=== PATIENT | male | born 2005 | race Caucasian/White ===

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

== ENCOUNTER 2023-04-02 10:19 | Emergency (ER) | payer SELFPAY ==
--- NOTE | 2023-04-02 11:05 | EXP.UTC ---
Discharge Plan Disposition Patient Disposition: Home, Self-Care Condition: Good Prescriptions Prescriptions: New polymyxin B sulf-trimethoprim 10,000 unit- 1 mg/mL drops 1 drp ophthalmic (eye) Q3H 7 Days Qty: 10 0RF Rx Instructions: while awake; do not exceed 6 doses in 24 hours Referrals Follow up/Referrals: Provider,Referral, MD [Primary Care Provider] - See instructions Activity Restrictions/Add. Instructions Additional Instructions/Restrictions: Use the eye drops as directed. Strict hand washing in the house hold, because conjunctivitis is very contagious. Follow up with your regular doctor. GO TO THE ER FOR ANY WORSENING SYMPTOMS OR CONCERNS Clinical Impressions Clinical Impression: Acute conjunctivitis, right eye Stand Alone Forms Stand Alone Forms: Work/School Release Instructions Patient Instructions: How to Instill Eye Drops, DI for Conjunctivitis Discharge ED Provider: Joey Ford [facility] [place] H[place] General Stated complaint: crusty red eyes Time Seen by Provider: 04/02/23 11:04 History of Present Illness Provider Complaint: He states that since yesterday he has had right eye redness and irritation. When he woke up this morning his right eye was matted together with greenish drainage. He denies any injury or foreign body. Related Data Previous Rx's Medication Instructions Recorded polymyxin B sulfate 10,000 1 drp ophthalmic (eye) Q3H 7 days 04/02/23 unit-trimethoprim 1 mg/mL eye drops #10 mL Allergies Allergy/AdvReac Type Severity Reaction Status Date / Time No Known Allergies Allergy Verified 04/02/23 11:24 [facility] Disclaimer: The information contained in this section may have been updated after the patient was seen, as this information can be updated by other users. Social History Smoking Status: Never smoker alcohol intake: never current occupational status: student Travel in the last 8 weeks: None ROS Obtained: Yes All systems reviewed & no additional complaints except as documented Constitutional Constitutional: Denies chills and Denies fever(s) Eyes Eyes: Reports as per HPI, Denies blurry vision, Denies change in vision, Denies diplopia, Reports eye discharge and Reports irritation ENT Ears, Nose, Mouth, and Throat: Denies dizziness, Denies otalgia and Denies sore throat Cardiovascular Cardiovascular: Denies chest pain Respiratory Respiratory: Denies shortness of breath, Denies chest congestion, Denies cough, Denies stridor and Denies wheezing Gastrointestinal Gastrointestingal: Denies nausea or vomiting Musculoskeletal Musculoskeletal: Reports system reviewed and no additional complaints, except as documented and Denies arthralgias Integumentary/Breasts Skin/Breast: Denies rash Neurologic Neurologic: Denies dizziness and Denies paresthesias Allergic/Immunologic Allergic/Immunologic: Denies wheezing Physical Exam General General appearance: alert and in no apparent distress Head Head exam: atraumatic, normocephalic and normal inspection Eye Eye exam: Present PERRL and EOMI Expanded Eye Exam Eyelids: left: normal inspection and right: erythema Pupils: Left: size (2), Right: size (2) and Bilateral: regular, round and reactive Sclera/Conjunctival: left: normal inspection and right: injection and exudate ENT ENT exam: Present normal exam, normal oropharynx, mucous membranes moist, TM's normal bilaterally and normal external ear exam Neck Neck exam: Present normal inspection, full ROM and trachea midline; Absent meningismus or lymphadenopathy Chest Chest inspection: Present normal inspection and symmetric chest wall rise; Absent tenderness Respiratory Respiratory exam: Present normal lung sounds bilaterally; Absent respiratory distress Cardiovascular Cardiovascular exam: Present regular rate and normal rhythm; Absent JVD Abdominal Exam Abdominal exam: Present soft and normal bowel sounds; Absent
[2023-04-02 11:10] VITALS: BP 136/75; PULSE 68; RESP 18; TEMP 36.9; O2SAT 99; BMI 21.6
[2023-04-02 11:36] VITALS: BP 136/75; PULSE 68; RESP 18; TEMP 36.9; O2SAT 99
== END 2023-04-02 11:36 | disposition home or self-care (01) ==
PROVIDERS: Emergency Provider Nurse Practitioner Family
DX: H10.31 Unspecified acute conjunctivitis, right eye (principal)
CPT/HCPCS: 99212; 99213; G0463

== ENCOUNTER 2024-06-16 18:07 | Emergency (ER) | payer MEDICAID, SELFPAY ==
[2024-06-16 18:25] VITALS: BP 143/86; PULSE 104; RESP 16; TEMP 37.4; O2SAT 99; BMI 21.7
--- NOTE | 2024-06-16 20:19 | PC.NURSE ---
Report received from Nikki BALTAZAR Pt resting quietly in recliner Skin pink warm and dry Lower lip swollen with small open area. Resp full and easy Speech clear and appropriate
--- NOTE | 2024-06-16 21:00 | ED_ITS ---
Discharge Plan Disposition Patient Disposition: Home, Self-Care Condition: Good Prescriptions Prescriptions: New amoxicillin-pot clavulanate 875-125 mg tablet 1 tab PO BID Qty: 20 0RF acyclovir 400 mg tablet 400 mg PO Q6H 10 Days Qty: 40 0RF No Action prednisone 20 mg tablet 20 mg PO BID Qty: 10 0RF sulfamethoxazole-trimethoprim 800-160 mg tablet 1 tab PO BID Qty: 14 0RF cephalexin 500 mg tablet 500 mg PO QID 7 Days Qty: 28 0RF Referrals Follow up/Referrals: Provider,Referral, MD [Primary Care Provider] - See instructions Activity Restrictions/Add. Instructions Additional Instructions/Restrictions: You were evaluated in the emergency department today. At this time, I am very concerned for all of the inflammation and infection of your lip. I recommend rapid evaluation by an oral surgeon. I offered to transfer tonight for further evaluation, however since you are electing to go home, please make sure that you return right away for new or worsening symptoms. 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 Stop taking the other medications provided to you by primary care. Return to the emergency department for new or worsening symptoms. Take Tylenol and ibuprofen every 4-6 hours as needed for pain. Clinical Impressions Clinical Impression: Infection of lip Stand Alone Forms Stand Alone Forms: Work/School Release Instructions Patient Instructions: DI for Skin Abscess Print Language Print Language: Upper Sorbian Discharge ED Provider: Arabella Gallegos General Adult HPI General Chief complaint: Skin/Abscess/Foreign Body Stated complaint: squeezed pimple on lower lip,now swollen Time Seen by Provider: 06/16/24 20:28 Mode of Arrival: Ambulatory Source of Information: Patient Limitations: No Limitations Description of Symptoms (Recalled from ER Triage Doc. by RN): Pt presents for further evaluation of infection to his bottom lip. Pt was seen at [facility] on thursday and was prescribed antibiotics/steroids. Pt states the infection started off as a pimple but now the swelling is worse. History of Present Illness HPI narrative: This patient is a 19-year-old male who reports history of cold sores presenting to the emergency department for evaluation with concern for lower lip infection. Patient reports that has been going on for several days. He states that it started out as a white pimple that they popped, but now his whole lip is become red, swollen, inflamed. He notes a history of cold sores but this did not start out as a cold sore he says. He notes that he is been having fevers, but he states that his young children who have also been sick. Related Data Previous Rx's ?Medication ?Instructions ?Recorded cephalexin 500 mg tablet 500 mg PO QID 7 days #28 tabs 06/14/24 prednisone 20 mg tablet 20 mg PO BID #10 tabs 06/14/24 sulfamethoxazole 800 1 tab PO BID #14 tabs 06/14/24 mg-trimethoprim 160 mg tablet acyclovir 400 mg tablet 400 mg PO Q6H 10 days #40 tabs 06/16/24 amoxicillin 875 mg-potassium 1 tab PO BID #20 tabs 06/16/24 clavulanate 125 mg tablet Allergies Allergy/AdvReac Type Severity Reaction Status Date / Time No Known Allergies Allergy Verified 06/14/24 16:06 [facility] Disclaimer: The information contained in this section may have been updated after the patient was seen, as this information can be updated by other users. Social History Smoking Status: Never smoker alcohol intake: never current occupational status: student Travel in the last 8 weeks: None Have you lived/traveled outside [place] in past 30 days?: No Contact w/someone who lives/traveled outside US past 30 days?: No Exposure to someone with infectious disease in past 14 days?: No Do you have a fever (greater than 100.4 F or 38 C)?: No Have you tested positive for COVID-19: No Exposed to someone with COVID-19 in past 14 days?: No Do you have a sore throat?: No Do you have a cough?: No Do you have any weakness?: No Do you have any diarrhea?: No Are you experiencing any unusual bleeding?: No Do you have any muscle aches/pain?: No Do you have any abdominal pain?: No Are you experiencing loss of taste or smell?: No Other Medical History Have you received the Pneumonia Vaccine: No ROS Obtained: Yes All systems reviewed & no additional complaints except as documented Physical Exam General General appearance: alert and in no apparent distress Head Head exam: atraumatic and normocephalic Eye Eye exam: Present normal appearance, PERRL and EOMI ENT ENT exam: Present mucous membranes moist and normal external ear exam Expanded ENT Exam Nose/Mouth Image: 2 1. Significant lower lip swelling and induration, area of necrosis. 2. White area of purulent Comment: Swelling is localized to the lower lip without spread to the face or oropharynx Neck Neck exam: Present normal inspection, full ROM and trachea midline; Absent tenderness Chest Chest inspection: Present normal inspection and symmetric chest wall rise; Absent tenderness Respiratory Respiratory exam: Present normal lung sounds bilaterally; Absent respiratory distress, wheezes, stridor or accessory muscle use Cardiovascular Cardiovascular exam: Present regular rate and normal rhythm Abdominal Exam Abdominal exam: Present soft; Absent distention, tenderness or guarding Extremities Exam Extremities exam: Present normal inspection, full ROM and normal capillary refill; Absent tenderness or edema Back Exam Back exam: Present normal inspection and full ROM; Absent tenderness Neurological Exam Neurological exam: Present alert, oriented X3, CN II-XII intact and normal gait; Absent motor sensory deficit Psychiatric Psychiatric exam: Present normal affect and normal mood Skin Skin exam: Present warm and dry Medical Decision Making Medical Records Medical records reviewed: Yes I reviewed the patient's medical records. Screening: Per USPSTF and CDC recommendations, given the prevalence of disease in our region, it is our hospital?s policy to screen for HIV and viral Hepatitis for all patients aged 18 and over and those with ongoing risk factors. Toby Inquiry Pt receiving controlled substance: No Vital Signs: 06/16/24 18:25 06/16/24 22:57 Temperature 99.3 F 99.0 F Temperature Source Oral Oral Pulse Rate 98 H Pulse Rate [Right] 104 H Respiratory Rate 16 20 Blood Pressure 140/70 Blood Pressure [Right Arm] 143/86 H Blood Pressure Mean [Right Arm] 105 Blood Pressure Source Automatic Cuff Blood Pressure Source [Right Arm] Automatic Cuff Blood Pressure Position Sitting Blood Pressure Position [Right Arm] Sitting 02 Sat by Pulse Oximetry 99 Oxygen Delivery Method Room Air Room Air Lab Data Lab results reviewed: Yes I reviewed the patient's lab results. Orders (Tests/Meds): ED MEDICATIONS Discontinued Medications Generic Name Dose Route Start Last Admin Trade Name Freq PRN Reason Stop Dose Admin Acetaminophen 1,000 mg 06/16/24 21:57 06/16/24 22:09 Acetaminophen 500mg Tab PO 06/16/24 21:58 1,000 mg ONCE ONE Administration Acyclovir 800 mg 06/16/24 21:52 06/16/24 22:09 Acyclovir 400mg Tab PO 06/16/24 21:53 800 mg ONCE ONE Administration Amoxicillin/Clavulanate Potassium 1 each 06/16/24 21:52 06/16/24 22:08 Amoxicillin/Clavulanate Potassium 875/125mg Tablet PO 06/16/24 21:53 1 each ONCE ONE Administration Benzocaine/Butamben/Tetracaine HCl 1 gm 06/16/24 21:25 06/16/24 21:32 Tetracaine/Benzocaine/Butamben 56 Gm [place] TP 06/16/24 21:26 1 gm ONCE ONE Administration Ibuprofen 800 mg 06/16/24 21:57 06/16/24 22:08 Ibuprofen 400 Mg Tablet PO 06/16/24 21:58 800 mg ONCE ONE Administration Lidocaine HCl 15 ml 06/16/24 21:25 06/16/24 21:32 Lidocaine 2% Viscous Tiana 15ml Udc PO 06/16/24 21:26 15 ml ONCE ONE Administration Ondansetron HCl 4 mg 06/16/24 21:57 06/16/24 22:09 Ondansetron 4mg Odt SL 06/16/24 21:58 4 mg ONCE ONE Administration ORDERS Category Date Time Status POCUS Point of Care (ER Only) Stat Exams 06/16/24 21:24 Completed HSV 1/2 PCR, (BLOOD/SWAB) Routine Lab 06/16/24 21:50 Ordered Wound Culture and Gram Stain Stat Micro 06/16/24 22:05 Results Medical Decision Narrative: In summary, this patient is a 19-year-old male presenting to the Emergency Department for evaluation of lower lip pain/swelling. Differential diagnoses considered include but are not limited to HSV infection, cellulitis, abscess, phlegmon. Ruling out the most morbid conditions drove assessment. On exam, the patient is nontoxic-appearing with reassuring vital signs on cardiac telemetry. He has localized swelling to his lower lip with area of necrosis, white areas concerning for purulence. He has significant tenderness and induration of his lower lip without obvious palpable area of fluctuance. I recommended to patient that I would recommend oral surgery evaluation/face evaluation for definitive management in case he does have an abscess there. Patient does not have insurance, an oral surgeon, a dentist, or PCP. I did call and discussed the case with who recommended the same thing, but patient would like to try drainage here because he does not have the means to go elsewhere. I explained to him that I am likely to not be able to get anything out, and drainage attempt could worsen cosmetic outcomes. He also could develop worsening infection if this is not dealt with by specialist sooner rather than later. He expressed understanding and agreement would like to proceed with attempted incision and drainage here. Procedure note: After informed consent was obtained and risk versus benefit was explained, patient elected to proceed with incision and drainage. Area was prepped with Betadine. Area was anesthetized with topical lidocaine. I incised the largest area of swelling and induration with a tiny small stab incision with an 11 blade scalpel and got a very small amount of purulence. I then discussed with the patient again and he still does not want to proceed with any sort of transfer or further evaluation. He would like to try going home with medications and see if he gets better now that it has been opened up. I prescribed him Augmentin and acyclovir just in case he has some herpetic component. He was given instructions for supportive management, close outpatient follow-up, and very strict return precautions. He was discharged via patient directed discharge after all questions were answered. Procedures Limited Ultrasound Findings:: Limited soft tissue ultrasound Indication: Soft tissue swelling and pain Identified structures: Location: Lower lip Findings: Cellulitis with fluid collection with mixed heterogeneity concerning for abscess versus developing phlegmon Impression: Abscess and cellulitis Images were saved to permanent archive The study was technically adequate Soft Tissue CPT Codes: CPT Neck: 77270-93 CPT Upper extremity: 43092-29 CPT Axilla: 33053-05 CPT Chest wall: 17225-84 CPT Breast: 64781-48-LG/LT (complete), 52646-86-JQ/LT (limited), CPT Upper Back: 68063-38 CPT Lower Back: 44314-92 CPT Abdominal Wall: 73277-58 CPT Pelvic Wall: 12168-08 CPT Lower Extremity: 04155-52 CPT Other Soft Tissue: 01899-93 This study was performed by me, and I personally interpreted all images/videos. Based on my clinical judgement, these images were adequate and did not necessitate further imaging. Critical Care Critical Care Time Critical Care Time: No
[2024-06-16] MEDS: TETRACAINE/BENZOCAINE/BUTAMBEN 56 GM SPRAY TP (21:32)
[2024-06-16] MEDS: LIDOCAINE 2% VISCOUS SOL 15ML UDC 15 ML PO (21:32)
[2024-06-16] MEDS: IBUPROFEN 400 MG TABLET 800 MG PO (22:08)
[2024-06-16] MEDS: AMOXICILLIN/CLAVULANATE POTASSIUM 875/125MG TABLET 1 EACH PO (22:08)
[2024-06-16] MEDS: ACETAMINOPHEN 500MG TAB 1000 MG PO (22:09)
[2024-06-16] MEDS: ACYCLOVIR 400MG TAB 800 MG PO (22:09)
[2024-06-16] MEDS: ONDANSETRON 4MG ODT 4 MG SL (22:09)
--- NOTE | 2024-06-16 22:24 | PC.NURSE ---
[facility] called for face consult.
[2024-06-16 22:57] VITALS: BP 140/70; PULSE 98; RESP 20; TEMP 37.2; O2SAT 97
--- NOTE | 2024-06-19 10:13 | PC.NURSE ---
WOUND CULTURE DISCUSSED WITH DR ELAM, ATTEMPTED TO REACH PT. NO ANSWER AND UNABLE TO LEAVE MESSAGE. CALLED MOTHER, PERSON TO NOTIFY. STATES PT'S LIP IS BETTER AND WILL HAVE PT RETURN MY CALL.
--- NOTE | 2024-06-19 10:18 | PC.NURSE ---
SPOKE WITH PT, REPORTS SIGNIFICANT IMPROVEMENT OF LIP REDNESS AND SWELLING. PT INSTRUCTED TO FOLLOW-UP WITH PCP. INSTRUCTED TO DC AUGMENTIN AND FINISH BACTRIM RX THAT WAS GIVEN BY ABEL FITCH ON 06/14/2024. CALL BACK WITH ANY OTHER CONCERNS OR RETURN TO ED WITH WORSENING OF SYMPTOMS
--- NOTE | 2024-06-20 08:44 | PC.NURSE ---
lab called for wound culture results. MRSA +. will speak with MD about ABX treatment and contact pt if needed.
--- NOTE | 2024-06-20 12:26 | PC.NURSE ---
discussed wound culture with , no new orders
[2024-06-21 09:12] LABS: HSV-1 DNA Negative (Negative); HSV-2 DNA Negative (Negative)
== END 2024-06-16 22:59 | disposition home or self-care (01) ==
PROVIDERS: Emergency Provider Emergency Medicine
DX: K13.0 Diseases of lips (principal); R50.9 Fever, unspecified
CPT/HCPCS: 87070; 87077; 87186; 87205; 87529; 99283; Q0162

== ENCOUNTER 2024-10-17 13:15 | Emergency (ER) | payer BC, SELFPAY ==
[2024-10-17 14:32] VITALS: BP 116/74; PULSE 72; RESP 16; TEMP 36.7; O2SAT 98; BMI 20.9
--- NOTE | 2024-10-17 16:58 | ED_ITS ---
Discharge Plan Disposition Patient Disposition: Home, Self-Care Condition: Good Prescriptions Prescriptions: New mupirocin 2 % ointment 1 applic topical BID 7 Days Qty: 15 0RF Rx Instructions: apply to nostrils twice daily for 1 week chlorhexidine gluconate [Antiseptic Skin Clnsr(chlorhe)] 4 % liquid 1 applic topical DAILY 7 Days Qty: 3800 0RF Rx Instructions: Wash with this body wash in the shower daily for 1 week sulfamethoxazole-trimethoprim [Bactrim DS] 800-160 mg tablet 1 tab PO BID 10 Days Qty: 20 0RF No Action dicyclomine 10 mg capsule 10 mg PO TID PRN (Reason: abdominal pain/cramping) Qty: 12 2RF Referrals Follow up/Referrals: Provider,Referral, MD [Primary Care Provider, Medical] - See instructions Activity Restrictions/Add. Instructions Additional Instructions/Restrictions: You were evaluated in the emergency department today. Please brass pickler your prescriptions at the pharmacy. We are doing a MRSA decolonization, so applied to your nose twice daily. Use the body wash provided to use daily for 1 week. I also recommend washing all linens and bedding. Follow-up closely with your primary care provider. Keep your wounds clean and dry. Return to the emergency department for new or worsening symptoms. Clinical Impressions Clinical Impression: Abscess of left shoulder Stand Alone Forms Stand Alone Forms: Work/School Release Instructions Patient Instructions: DI for Skin Abscess, DI for Incision and Drainage Print Language Print Language: Lithuanian Discharge ED Provider: Arabella Gallegos General Adult HPI General Chief complaint: Skin/Abscess/Foreign Body Stated complaint: L Shoulder Bumps Time Seen by Provider: 10/17/24 15:30 Mode of Arrival: Ambulatory Description of Symptoms (Recalled from ER Triage Doc. by RN): PT TO THE ED WITH AN ABCESS TO HIS LEFT SHOULDER. History of Present Illness HPI narrative: This patient is a 19-year-old male who has a history of prior MRSA infection presenting to the emergency department for evaluation of concern for an infected bump to his left shoulder this been there for several days. He notes he is been picking at it and trying to pop it but has not been successful. He denies any systemic symptoms such as fevers, chills, or other concerns. Related Data Previous Rx's ?Medication ?Instructions ?Recorded dicyclomine 10 mg capsule 10 mg PO TID PRN abdominal 0 09/27/24 pain/cramping #12 caps chlorhexidine gluconate 4 % 1 applic topical DAILY 7 d ays 10/17/24 topical liquid (Antiseptic Skin #3,800 mL Cleanser (chlorhexidine)) mupirocin 2 % topical ointment 1 applic topical BID 7 days #15 10/17/24 grams sulfamethoxazole 800 1 tab PO BID 10 days #20 tab s 10/17/24 mg-trimethoprim 160 mg tablet (Bactrim DS) Allergies Allergy/AdvReac Type Severity Reaction Status Date / Time No Known Allergies Allergy Verified 09/27/24 17:[address] [facility] Disclaimer: The information contained in this section may have been updated after the patient was seen, as this information can be updated by other users. Medical History Skin problem Social History Smoking Status: Never smoker alcohol intake: never current occupational status: student Travel in the last 8 weeks?: None Have you lived/traveled outside US in past 30 days?: No Contact w/someone who lives/traveled outside US past 30 days?: No Exposure to someone with infectious disease in past 14 days?: No Do you have a fever (greater than 100.4 F or 38 C)?: No Have you tested positive for COVID-19?: No Exposed to someone with COVID-19 in past 14 days?: No Do you have a sore throat?: No Do you have a cough?: No Do you have any weakness?: No Do you have any diarrhea?: No Are you experiencing any unusual bleeding?: No Do you have any muscle aches/pain?: No Do you have any abdominal pain?: No Are you experiencing loss of taste or smell?: No Other Medical History Have you received the Pneumonia Vaccine: No ROS Obtained: Yes All systems reviewed & no additional complaints except as documented Physical Exam General General appearance: alert and in no apparent distress Head Head exam: atraumatic and normocephalic Eye Eye exam: Present normal appearance, PERRL and EOMI ENT ENT exam: Present normal exam, normal oropharynx, mucous membranes moist and normal external ear exam Neck Neck exam: Present normal inspection, full ROM and trachea midline; Absent tenderness Chest Chest inspection: Present normal inspection and symmetric chest wall rise; Absent tenderness Respiratory Respiratory exam: Present normal lung sounds bilaterally; Absent respiratory distress, wheezes, stridor or accessory muscle use Cardiovascular Cardiovascular exam: Present regular rate and normal rhythm Abdominal Exam Abdominal exam: Present soft; Absent distention, tenderness or guarding Extremities Exam Extremities exam: Present full ROM and normal capillary refill; Absent tenderness or edema Expanded Upper Extremity Exam Left: L/R Arms Top View: 2 1. Abscess with cellulitis Back Exam Back exam: Present normal inspection and full ROM; Absent tenderness Neurological Exam Neurological exam: Present alert, oriented X3, CN II-XII intact and normal gait; Absent motor sensory deficit Psychiatric Psychiatric exam: Present normal affect and normal mood Skin Skin exam: Present warm and dry Medical Decision Making Medical Records Medical records reviewed: Yes I reviewed the patient's medical records. Screening: Per USPSTF and CDC recommendations, given the prevalence of disease in our region, it is our hospital?s policy to screen for HIV and viral Hepatitis for all patients aged 18 and over and those with ongoing risk factors. Toby Inquiry Pt receiving controlled substance: No Vital Signs: 10/17/24 14:32 Temperature 98.1 F Temperature Source Oral Pulse Rate [Left Radial] 72 Respiratory Rate 16 Blood Pressure [Right Arm] 116/74 Blood Pressure Mean [Right Arm] 88 Blood Pressure Source [Right Arm] Automatic Cuff Blood Pressure Position [Right Arm] Sitting 02 Sat by Pulse Oximetry 98 Oxygen Delivery Method Room Air Lab Data Lab results reviewed: Yes I reviewed the patient's lab results. Orders (Tests/Meds): ED MEDICATIONS Discontinued Medications Generic Name Dose Route Start Last Admin Trade Name Tawny PRN Reason Stop Dose Admin Lidocaine/Epinephrine 20 ml 10/17/24 15:53 Lidocaine 1% W/Epi 1:100,000 20ml Vial IJ 10/17/24 15:54 ONCE ONE ORDERS Category Date Time Status Wound Culture and Gram Stain Stat Micro 10/17/24 16:04 Received Medical Decision Narrative: In summary, this patient is a 19-year-old male presenting to the Emergency Department for evaluation of abscess to the left shoulder. Differential diagnoses considered include but are not limited to abscess, cellulitis. Ruling out the most morbid conditions drove assessment. On exam, the patient has an obvious abscess of the left shoulder with central area of purulence. After informed consent was obtained, he consented to incision and drainage at bedside. Area was prepped with Betadine, and then a single stab incision was made with an 11 blade. This was after anesthetizing with lidocaine with epinephrine. Patient tolerated this well without complication. Wound culture was sent and is pending. He does have a history of MRSA, so I elected to prescribe him Bactrim and also prescribe mupirocin and chlorhexidine wash for decolonization. I feel he is appropriate for discharge with instructions for supportive care and strict return precautions. He was discharged after all questions were answered Procedures Risk/Benefits of Procedure(s) Were Explained: Yes Abscess I/D Site: upper extremity Side (if applicable): left Local Anesthetic: lidocaine 1% Amount of anesthesia used (mL): 1 Technique: incised with #11 blade Amount of fluid expressed (mL): 4 Irrigation: Yes Packing used?: none Complications: other (No complications) Critical Care Critical Care Time Critical Care Time: No
[2024-10-17 17:20] VITALS: BP 116/74; PULSE 72; RESP 16; TEMP 36.7; O2SAT 98
--- NOTE | 2024-10-19 12:19 | PC.NURSE ---
I spoke with about the pts wound culture results. no change needed in treatment plan at this time.
== END 2024-10-17 17:21 | disposition home or self-care (01) ==
PROVIDERS: Emergency Provider Emergency Medicine
DX: L02.414 Cutaneous abscess of left upper limb (principal); B95.7 Other staphylococcus as the cause of diseases classified elsewhere
CPT/HCPCS: 10060; 87070; 87077; 87186; 87205; 99283; J2004

== ENCOUNTER 2025-01-16 16:15 | Emergency (ER) | payer BC, SELFPAY ==
[2025-01-16 16:33] VITALS: BP 127/85; PULSE 79; RESP 16; TEMP 36.8; O2SAT 97; BMI 21.9
--- NOTE | 2025-01-16 16:39 | ED_ITS ---
<Statement entered by Hayden Sepulveda MD - 01/16/25 19:13> I was consulted by the MERRY, and we discussed the complexity of the problems being addressed. I approve the treatment and management plan for this patient's care in the emergency department, thus performing a substantive portion of the medical decision making. Hayden Sepulveda MD Discharge Plan Disposition Patient Disposition: Home, Self-Care Condition: Good Prescriptions Prescriptions: New amoxicillin-pot clavulanate 875-125 mg tablet 1 tab PO BID 7 Days Qty: 14 0RF No Action dicyclomine 10 mg capsule 10 mg PO TID PRN (Reason: abdominal pain/cramping) Qty: 12 2RF mupirocin 2 % ointment 1 applic topical BID 7 Days Qty: 15 0RF Rx Instructions: apply to nostrils twice daily for 1 week chlorhexidine gluconate [Antiseptic Skin Clnsr(chlorhe)] 4 % liquid 1 applic topical DAILY 7 Days Qty: 3800 0RF Rx Instructions: Wash with this body wash in the shower daily for 1 week sulfamethoxazole-trimethoprim [Bactrim DS] 800-160 mg tablet 1 tab PO BID 10 Days Qty: 20 0RF Referrals Follow up/Referrals: Mildred Aguilar DMD [Referring, Dentistry] - See instructions Provider,Referral, [Primary Care Provider, Medical] - See instructions Activity Restrictions/Add. Instructions Additional Instructions/Restrictions: Please return to the emergency department with any worsening signs or symptoms. Please utilize your antibiotic as prescribed. Please take with food twice daily for 7 days. Please follow-up with a dentist in the upcoming days/weeks. Please utilize ibuprofen and Tylenol for symptomatic relief. Clinical Impressions Clinical Impression: Pain, dental Instructions Patient Instructions: DI for Tooth Decay, DI for Dental Pain Print Language Print Language: Kazakh Discharge ED Provider: Hayden Sepulveda General Adult HPI General Chief complaint: Dental/Oral Stated complaint: Hole in bottom R tooth; Pain Time Seen by Provider: 01/16/25 16:31 Mode of Arrival: Ambulatory Source of Information: Patient Description of Symptoms (Recalled from ER Triage Doc. by RN): pt presents with a broken R lower molar. Pt states it has been this way for about a year. However, yesterday he began having pain and tasting something bad coming out of the socket. pt is concerned for infection. his pain is 6/10, constant, and pressure. He has tried to manage the pain unsuccessfully with oragel. History of Present Illness HPI narrative: 19-year-old male presents the emergency department with a right sided premolar dental pain, patient states that he is had an absent tooth there, and it fell out about a year ago , patient states he is new to the area, and started having pain and bad taste , the last 2 days, he is concerned about infection, patient denies any chest pain shortness of breath nausea vomiting constipation diarrhea no fever no chills no headache no lightheadedness, no recent sick contacts, patient has no other acute complaints. Patient is a current everyday smoker, occasionally uses alcohol, denies any other drug use. Patient has no other real relevant past medical history takes no medications at home. Has not yet seen a dental provider in quite some time. Please note that above description of symptoms, in this electronic medical record under categorization of recalled from ER triage doctor by RN are reflective of an initial nursing assessment, however, is not reflective of my full history and physical exam that was personally taken and clarified. Consequentially, this preceding description of symptoms, which may include the patient's categorized chief complaint in the EMR, do not reflect my personal clinical impression, and the ultimate description of history of present illness and patient stated complaints should be deferred to this section of the note. Unless stated otherwise or congruent with this section of the note, additional signs, symptoms, or incongruence should be interpreted as inaccurate with my clinical impression. Onset (ago): day(s) Related Data Previous Rx's ?Medication ?Instructions ?Recorded dicyclomine 10 mg capsule 10 mg PO TID PRN abdominal 0 09/27/24 pain/cramping #12 caps chlorhexidine gluconate 4 % 1 applic topical DAILY 7 d ays 10/17/24 topical liquid (Antiseptic Skin #3,800 mL Cleanser (chlorhexidine)) mupirocin 2 % topical ointment 1 applic topical BID 7 days #15 10/17/24 grams sulfamethoxazole 800 1 tab PO BID 10 days #20 tab s 10/17/24 mg-trimethoprim 160 mg tablet (Bactrim DS) amoxicillin 875 mg-potassium 1 tab PO BID 7 days #14 t abs 01/16/25 clavulanate 125 mg tablet Allergies Allergy/AdvReac Type Severity Reaction Status Date / Time No Known Allergies Allergy Verified 01/16/25 16:38 [facility] Disclaimer: The information contained in this section may have been updated after the pat ient was seen, as this information can be updated by other users. Medical History Skin problem Social History Smoking Status: Current every day smoker tobacco type: smokeless tobacco alcohol intake: never current occupational status: student Travel in the last 8 weeks?: None Have you lived/traveled outside US in past 30 days?: No Contact w/someone who lives/traveled outside US past 30 days?: No Exposure to someone with infectious disease in past 14 days?: No Do you have a fever (greater than 100.4 F or 38 C)?: No Have you tested positive for COVID-19?: No Exposed to someone with COVID-19 in past 14 days?: No Do you have a sore throat?: No Do you have a cough?: No Do you have any weakness?: No Do you have any diarrhea?: No Are you experiencing any unusual bleeding?: No Do you have any muscle aches/pain?: No Do you have any abdominal pain?: No Are you experiencing loss of taste or smell?: No Other Medical History Have you received the Pneumonia Vaccine: No ROS Obtained: Yes All systems reviewed & no additional complaints except as documented Physical Exam General General appearance: alert and in no apparent distress Head Head exam: atraumatic and normocephalic Eye Eye exam: Present PERRL and EOMI ENT ENT exam: Present normal exam, normal oropharynx, mucous membranes moist and other (Absent dentition at the right premolar, with some area of open socket, no obvious periapical periodontal abscess to be amicable for drainage at this time. Uvula midline, fluid particulate stuck in socket) Neck Neck exam: Present normal inspection Chest Chest inspection: Present normal inspection and symmetric chest wall rise Respiratory Respiratory exam: Present normal lung sounds bilaterally; Absent respiratory distress Cardiovascular Cardiovascular exam: Present regular rate and normal rhythm Abdominal Exam Abdominal exam: Present soft; Absent tenderness Extremities Exam Extremities exam: Present normal inspection Neurological Exam Neurological exam: Present alert and oriented X3 Psychiatric Psychiatric exam: Present normal affect Skin Skin exam: Present warm and dry Medical Decision Making Medical Records Medical records reviewed: Yes I reviewed the patient's medical records. Screening: Per USPSTF and CDC recommendations, given the prevalence of disease in our region, it is our hospital?s policy to screen for HIV and viral Hepatitis for all patients aged 18 and over and those with ongoing risk factors. Toby Inquiry Pt receiving controlled substance: No Toby was queried for this patient: No Vital Signs: 01/16/25 16:33 Temperature 98.3 F Temperature Source Oral Pulse Rate [Left] 79 Respiratory Rate 16 Blood Pressure [Right Arm] 127/85 Blood Pressure Mean [Right Arm] 99 Blood Pressure Source [Right Arm] Automatic Cuff Blood Pressure Position [Right Arm] Sitting 02 Sat by Pulse Oximetry 97 Oxygen Delivery Method Room Air Orders (Tests/Meds): ED MEDICATIONS Generic Name Dose Route Start Last Admin Trade Name Freq PRN Reason Stop Dose Admin Ibuprofen 600 mg 01/16/25 16:43 Ibuprofen 600 Mg Tablet PO 01/16/25 16:44 ONCE ONE Lidocaine HCl 15 ml 01/16/25 16:42 Lidocaine 2% Viscous Tiana 15ml Udc PO 01/16/25 16:43 ONCE ONE Medical Decision Narrative: 19-year-old male presents emergency department with right sided dental pain, for 2 days, differential diagnose include but not limited to, periodontal abscess, periapical abscess, dry socket, pulpitis, dental caries among others. I discussed this patient's case with the attending physician Will give the patient dental ball for treatment here as well as 600 mg p.o. Motrin and 500 mg p.o. Tylenol, will send the patient home with Augmentin 875 mg p.o. twice daily for 7 days or until dental follow-up. Patient was given strict ED return precautions. Patient voiced understanding and agreement with the current treatment plan/discharge plan. Patient follow-up with dental provider in the upcoming days/weeks. Critical Care Critical Care Time Critical Care Time: No
[2025-01-16] MEDS: LIDOCAINE 2% VISCOUS SOL 15ML UDC 15 ML PO (16:56)
[2025-01-16] MEDS: IBUPROFEN 600 MG TABLET PO (16:56)
[2025-01-16] MEDS: ACETAMINOPHEN 500MG TAB 500 MG PO (16:56)
[2025-01-16 16:58] VITALS: BP 122/80; PULSE 70; RESP 18; TEMP 36.8; O2SAT 98
== END 2025-01-16 17:01 | disposition home or self-care (01) ==
PROVIDERS: Emergency Provider Student in an Organized Health Care Education/Training Program
DX: K08.89 Other specified disorders of teeth and supporting structures (principal); F17.290 Nicotine dependence, other tobacco product, uncomplicated
CPT/HCPCS: 99283

== ENCOUNTER 2025-02-04 22:17 | Emergency (ER) | payer BC, SELFPAY ==
[2025-02-04] VITALS (7 sets, daily range): BP systolic 129–143; BP diastolic 91–97; PULSE 99–129; RESP 17–19; TEMP 36.6; O2SAT 91–98; BMI 21.6
--- NOTE | 2025-02-04 22:24 | XR_ITS ---
PROCEDURE INFORMATION: Exam: XR Left Shoulder Exam date and time: 02/04/2025 10:53 PM Age: 19 years old Clinical indication: Injury or trauma; Fall; Additional info: Left shoulder injury. TECHNIQUE: Imaging protocol: Radiologic exam of the left shoulder. Views: 2 or more views. Total images: 3 COMPARISON: No relevant prior studies available. FINDINGS: Bones/joints: No acute fracture, joint dislocation, or AC joint separation. No concerning bone lesions or calcifications. Unremarkable joint spaces. Soft tissues: Unremarkable soft tissues. IMPRESSION: Negative left shoulder.
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
== END 2025-02-04 23:28 | disposition home or self-care (01) ==
PROVIDERS: Emergency Provider Student in an Organized Health Care Education/Training Program
DX: M25.512 Pain in left shoulder (principal); F10.929 Alcohol use, unspecified with intoxication, unspecified; F17.290 Nicotine dependence, other tobacco product, uncomplicated
CPT/HCPCS: 73030; 99283; 99285